=== PATIENT | male | born 1955 | race American Indian/Alaskan Native ===

== ENCOUNTER 2019-03-10 06:05 | Emergency (ER) | payer MEDICAID ==
[2019-03-10] MEDS ORDERED: ASPIRIN PO ONE (06:27)
[2019-03-10 06:36] LABS: Basophils # (Auto) 0.1 K/mm3 (0.0-0.1); Basophils % (Auto) 0.7 % (0.0-1.8); Eosinophils # (Auto) 0.1 K/mm3 (0.0-0.4); Eosinophils % (Auto) 1.9 % (0.0-4.3); Hemoglobin 14.1 gm/dl (11.8-15.2); Lymphocytes # (Auto) 1.6 K/mm3 (1.2-5.4); Lymphocytes % (Auto) 21.7 % (13.4-35.0); Mean Corpuscular HGB Conc 34 % (32-34); Mean Corpuscular Volume 87 fl (84-94); Monocytes # (Auto) 0.7 K/mm3 (0.0-0.8); Monocytes % (Auto) 9.4 % (0.0-7.3); Platelet Count 218 K/mm3 (140-440); Red Blood Count 4.84 M/mm3 (3.65-5.03); Red Cell Distribution Width 14.1 % (13.2-15.2)
[2019-03-10 06:57] LABS: BUN/Creatinine Ratio 16; Blood Urea Nitrogen 16 mg/dL (9-20); Calcium 9.4 mg/dL (8.4-10.2); Hemolysis Index 9
[2019-03-10] MEDS ORDERED: ANTIVERT PO ONE (07:17)
--- NOTE | 2019-03-10 07:20 | Emergency Department Report ---
HPI - General Chief Complaint: Dizziness Time Seen by Provider: 03/10/19 07:06 - HPI HPI: 63-year-old -[place] male presents to the emergency Department from home by EMS with complaint of some dizziness causing him to have a fall, followed by some chest pain. He says that the chest pain is resolved but he still has this dizziness that worsens when he turns his head or makes any sharp movements. Patient has a past medical history of previous MD in March of last year, [id number] diabetes and hypertension. He did not take anything for her symptoms prior to presentation, nor receive anything in route. He has a primary care physician through [place] but denies having a qa lead. Denies any tobacco or illicit drug use. No recent travel or sick contacts at home. ED Past Medical Hx - Past Medical History Previous Medical History?: Yes Hx Hypertension: Yes Hx Heart Attack/AMI: Yes (March 2018) Hx Diabetes: Yes - Social History Smoking Status: Never Smoker Substance Use Type: None - Medications Home Medications: Home Medications Medication Instructions Recorded Confirmed Last Taken Type Meclizine [Antivert] 25 mg PO TID PRN #20 tablet 03/10/19 Unknown Rx ED Review of Systems ROS: Stated complaint: DIZZINESS Other details as noted in HPI Comment: All other systems reviewed and negative Constitutional: denies: chills, fever Eyes: denies: eye pain, vision change ENT: denies: ear pain, throat pain Respiratory: shortness of breath. denies: cough Cardiovascular: chest pain. denies: palpitations Gastrointestinal: denies: abdominal pain, vomiting Genitourinary: denies: dysuria, discharge Musculoskeletal: denies: back pain, arthralgia Neurological: headache, vertigo Physical Exam - Physical Exam Vital Signs: Vital Signs 03/10/19 03/10/19 03/10/19 04:16 06:12 06:16 Temperature 97.9 F Pulse Rate 83 83 79 Respiratory 10 L 16 20 Rate Blood Pressure 126/68 126/68 157/71 O2 Sat by Pulse 97 Oximetry 03/10/19 03/10/19 03/10/19 06:31 07:00 07:13 Temperature Pulse Rate 77 72 Respiratory 12 14 18 Rate Blood Pressure 125/70 O2 Sat by Pulse Oximetry Physical Exam: GENERAL: The patient is well-developed well-nourished. HENT: Normocephalic. Atraumatic. Patient has moist mucous membranes. EYES: Extraocular motions are intact. Pupils equal reactive to light bilaterally. Patient has horizontal nystagmus that worsens his symptoms. NECK: Supple. Trachea is midline. CHEST/LUNGS: Clear to auscultation. There is no respiratory distress noted. HEART/CARDIOVASCULAR: Regular. There is no tachycardia. There is no murmur. ABDOMEN: Abdomen is soft, nontender. Patient has normal bowel sounds. Morbidly obese habitus. SKIN: Skin is warm and dry. NEURO: The patient is awake, alert, and oriented. The patient is cooperative. The patient has no focal neurologic deficits. The patient has normal speech. Cranial nerves II through XII grossly intact. No pronator drift. No dysmetria. MUSCULOSKELETAL: There is no tenderness or deformity. There is no limitation range of motion. There is no evidence of acute injury. Muscle strength 5 out of 5 upper and lower extremities bilaterally. ED Course Vital Signs 03/10/19 03/10/19 03/10/19 04:16 06:12 06:16 Temperature 97.9 F Pulse Rate 83 83 79 Respiratory 10 L 16 20 Rate Blood Pressure 126/68 126/68 157/71 O2 Sat by Pulse 97 Oximetry 03/10/19 03/10/19 03/10/19 06:31 07:00 07:13 Temperature Pulse Rate 77 72 Respiratory 12 14 18 Rate Blood Pressure 125/70 O2 Sat by Pulse Oximetry ED Medical Decision Making - Lab Data Result diagrams: 03/10/19 06:25 03/10/19 06:25 - EKG Data -: EKG Interpreted by Me EKG shows normal: sinus rhythm, axis, intervals (prolonged NE interval), QRS complexes (low-voltage, Q waves to the anterior leads), ST-T waves Rate: normal - EKG Data When compared to previous EKG there are: previous EKG unavailable Interpretation: other (sinus rhythm, prolonged NE interval, low-voltage QRS, Q waves to the anterior leads) - Radiology Data Radiology results: report reviewed, image reviewed interpreted by me: Chest x-ray does not show any acute process. There are no pleural effusions, obvious pneumonia and there is no pneumothorax. PROCEDURE: CT HEAD/BRAIN WO CON TECHNIQUE: A noncontrast CT of the head was performed. HISTORY: dizziness COMPARISON: None FINDINGS: There is no acute intracranial hemorrhage. There is no brain edema, mass effect or midline shift. Ventricular size is appropriate for brain volume. There is no abnormal extra-axial fluid collections. There is no skull fracture seen. The visualized paranasal sinuses are clear. IMPRESSION: There is no acute intracranial abnormality seen. This document is electronically signed by Argelia Wang MD., March 10 2019 11:21:10 AM ET Transcribed By: PATRICIO Dictated By: ARGELIA WANG MD Electronically Authenticated By: ARGELIA WANG MD Signed Date/Time: 03/10/19 1123 - Medical Decision Making This patient presents to the emergency department with a room spinning dizziness sensation that started earlier today that caused him to have a fall. Then he had some transient short chest pains that have since resolved. On examination the patient does not have any focal, motor or sensory deficits and his cranial nerves are intact. He does have some results horizontal nystagmus that worsens the room spinning sensation. Patient was given a dose of Antivert. CT scan of the head was done that does not show any bleed, shift, mass, ischemia, or any other acute process. Unable to obtain angiography of the head and neck due to the patient's body habitus but at the time of that examination the patient is currently asymptomatic. Patient's labs were unremarkable including CBC, metabolic panel, TSH, troponin and d-dimer. He was seen ambulatory in the emergency department and both appears and feels stable. There was no return of any of the vertigo like symptoms. His vital signs are stable throughout his ED course. The patient will be discharged home to follow-up with his primary care physician. He was given a referral for cardiology. He was given a prescription for Antivert. He will return to the ER with any return of his chest pain, worsening symptoms, if any acute distress. - Differential Diagnosis benign positional vertigo, TIA, PE, electrolyte abnor Critical Care Time: No Critical care attestation.: If time is entered above; I have spent that time in minutes in the direct care of this critically ill patient, excluding procedure time. ED Disposition Clinical Impression: Vertigo, Dizziness Disposition: DC-01 TO HOME OR SELFCARE Is pt being admited?: No Condition: Stable Instructions: Vertigo (ED), Dizziness (ED) Additional Instructions: Please follow-up with your primary care physician in the next few days. I'm giving him a referral for a local qa lead, Dr. Arndt, follow-up regarding her previous chest pain. Return to the emergency Department with any return of chest pain, worsening of your symptoms or any acute distress. Prescriptions: Meclizine [Antivert] 25 mg PO TID PRN #20 tablet PRN Reason: Vertigo Referrals: NILE ARNDT MD [Staff Physician] - 3-5 Days Time of Disposition: 13:14
--- NOTE | 2019-03-10 11:23 | Cat Scan Report ---
PROCEDURE: CT HEAD/BRAIN WO CON TECHNIQUE: A noncontrast CT of the head was performed. HISTORY: dizziness COMPARISON: None FINDINGS: There is no acute intracranial hemorrhage. There is no brain edema, mass effect or midline shift. Ventricular size is appropriate for brain volume. There is no abnormal extra-axial fluid collections. There is no skull fracture seen. The visualized paranasal sinuses are clear. IMPRESSION: There is no acute intracranial abnormality seen. This document is electronically signed by Argelia Walton MD., March 10 2019 11:21:10 AM ET
[2019-03-10 13:22] VITALS: BP 155/99
--- NOTE | 2019-03-10 20:07 | XRay Report ---
PROCEDURE: XR CHEST 1V AP TECHNIQUE: Chest radiograph single view. HISTORY: Chest Pain COMPARISONS: None . FINDINGS: Heart: Normal. Mediastinum/Vessels: Normal. Lungs/Pleural space: Normal. Bony thorax: No acute osseous abnormality. Life support devices: None. IMPRESSION: No acute cardiopulmonary abnormality. This document is electronically signed by Aram Jalloh MD., March 10 2019 08:05:52 PM ET
== END 2019-03-10 13:48 | disposition home or self-care (01) ==
LOC: ED 06:05
DX: R42 Dizziness and giddiness (principal); R07.9 Chest pain, unspecified; I10 Essential (primary) hypertension; I25.2 Old myocardial infarction; E11.9 Type 2 diabetes mellitus without complications; Z79.899 Other long term (current) drug therapy; W18.30XA Fall on same level, unspecified, initial encounter; Y93.89 Activity, other specified; Y92.89 Other specified places as the place of occurrence of the external cause; Y99.8 Other external cause status
CPT/HCPCS: 36415; 70450; 71045; 80048; 84443; 84484; 85025; 85379; 93005; 93010

== ENCOUNTER 2019-03-23 18:59 | Emergency (ER) | payer MEDICAID ==
[2019-03-23 19:37] VITALS: BP 153/82
[2019-03-23] MEDS ORDERED: BICILLIN L-A IM ONE (20:31)
[2019-03-23] MEDS ORDERED: DECADRON IM ONE (20:31)
--- NOTE | 2019-03-23 20:32 | Emergency Department Report ---
Minor Respiratory - HPI Chief Complaint: Sore Throat Stated Complaint: SORE THROAT Time Seen by Provider: 03/23/19 20:31 Duration: 3 Days Pain Location: Throat Severity: mild Minor Respiratory: Yes Sore Throat, Yes Able to Tolerate Fluids, No Rhinorrhea, No Ear Pain, No Cough, No Sick Contacts, No Hemoptysis, No Chest Pain, No Shortness of Breath, No Fever Other History: 63 yo morbidly obese male with 3 day history of sorethroat. controlling secretions. no abscess. taking po ED Review of Systems ROS: Stated complaint: SORE THROAT Other details as noted in HPI Comment: All other systems reviewed and negative ED Past Medical Hx - Past Medical History Previous Medical History?: Yes Hx Hypertension: Yes Hx Heart Attack/AMI: Yes (March 2018) Hx Diabetes: Yes - Social History Smoking Status: Never Smoker Substance Use Type: None - Medications Home Medications: Home Medications Medication Instructions Recorded Confirmed Last Taken Type Meclizine [Antivert] 25 mg PO TID PRN #20 tablet 03/10/19 Unknown Rx Amoxicillin [Trimox CAP] 500 mg PO TID #30 capsule 03/23/19 Unknown Rx Minor Respiratory Exam - Exam General: Vital signs noted. No distress. Alert and acting appropriately. HEENT: Yes Pharyngeal Erythema, Yes Moist Mucous Membranes, No Pharyngeal Exudates, No Rhinorrhea Ear: Neither TM Bulge, Neither TM Erythema Neck: Yes Supple, No Adenopathy Lungs: Yes Good Air Exchange, No Wheezes Heart: Yes Regular, No Murmur Abdomen: No Tenderness Skin: No Rash Neurologic: Alert and oriented, no deficits. Musculoskeletal: Unremarkable. ED Course Vital Signs 03/23/19 19:28 Temperature 98.9 F Pulse Rate 91 H Respiratory 18 Rate Blood Pressure 153/82 O2 Sat by Pulse 93 Oximetry ED Medical Decision Making - Medical Decision Making exam - uvula midline and red malodorous medicated with steroid and bicillin in ER dc home with dc plan of care and follow up Vital Signs 03/23/19 19:28 Temperature 98.9 F Pulse Rate 91 H Respiratory 18 Rate Blood Pressure 153/82 O2 Sat by Pulse 93 Oximetry Critical care attestation.: If time is entered above; I have spent that time in minutes in the direct care of this critically ill patient, excluding procedure time. ED Disposition Clinical Impression: Pharyngitis, Morbid obesity Disposition: DC-01 TO HOME OR SELFCARE Is pt being admited?: No Does the pt Need Aspirin: No Condition: Stable Instructions: Pharyngitis (ED) Prescriptions: Amoxicillin [Trimox CAP] 500 mg PO TID #30 capsule Referrals: FAIZAN PADGETT MD [Primary Care Provider] - 3-5 Days Time of Disposition: 21:45
== END 2019-03-23 22:15 | disposition home or self-care (01) ==
LOC: ED 18:59
DX: J02.9 Acute pharyngitis, unspecified (principal); E66.09 Other obesity due to excess calories; I10 Essential (primary) hypertension; I25.2 Old myocardial infarction; E11.9 Type 2 diabetes mellitus without complications; Z79.899 Other long term (current) drug therapy; Z88.8 Allergy status to other drugs, medicaments and biological substances
CPT/HCPCS: 96372; 99282; J0561; J1100

== ENCOUNTER 2019-03-25 15:13 | Emergency (ER) | payer MEDICAID ==
[2019-03-25] MEDS ORDERED: CLEOCIN 900 MG/50 mL 900 MG/50 ML BAG IV ONE (19:33)
[2019-03-25] MEDS ORDERED: DECADRON IV ONE (19:33)
[2019-03-25] MEDS ORDERED: TORADOL IV ONE (19:33)
[2019-03-25 20:40] LABS: Basophils # (Auto) 0.1 K/mm3 (0.0-0.1); Basophils % (Auto) 1.1 % (0.0-1.8); Eosinophils # (Auto) 0.1 K/mm3 (0.0-0.4); Hematocrit 42.3 % (35.5-45.6); Hemoglobin 14.1 gm/dl (11.8-15.2); Lymphocytes # (Auto) 3.5 K/mm3 (1.2-5.4); Lymphocytes % (Auto) 29.4 % (13.4-35.0); Mean Corpuscular HGB Conc 33 % (32-34); Mean Corpuscular Volume 87 fl (84-94); Monocytes # (Auto) 1.4 K/mm3 (0.0-0.8); Platelet Count 240 K/mm3 (140-440); Red Blood Count 4.85 M/mm3 (3.65-5.03); Red Cell Distribution Width 14.3 % (13.2-15.2)
[2019-03-25 20:53] LABS: BUN/Creatinine Ratio 16; Blood Urea Nitrogen 18 mg/dL (9-20); Calcium 9.1 mg/dL (8.4-10.2); Hemolysis Index 3
--- NOTE | 2019-03-25 21:19 | Emergency Department Report ---
ED ENT HPI - General Chief complaint: Sore Throat Stated complaint: THROAT PAIN Time Seen by Provider: 03/25/19 19:22 Source: patient Mode of arrival: Ambulatory Limitations: No Limitations - History of Present Illness Initial comments: pt is a 63 y/o aam who presents for sore throat x 1 week seen 2 days ago tx'd with pcn not improving not taking abx at home states pain is worsen , dysphagia and fever there is no sob no wheezing no stridor. complaint: sore throat Onset/Timin -: week(s) Location: throat Severity: moderate Severity scale (0 -10): 6 Quality: burning, sharp Improves with: none Worsens with: swallowing Associated Symptoms: pain with swallowing, sore throat - Related Data Previous Rx's Medication Instructions Recorded Last Taken Type Meclizine [Antivert] 25 mg PO TID PRN #20 tablet 03/10/19 Unknown Rx Amoxicillin [Trimox CAP] 500 mg PO TID #30 capsule 03/23/19 Unknown Rx Acetaminophen [Acetaminophen TAB] 650 mg PO Q6HR PRN #30 tablet 03/25/19 Unknown Rx Benzocaine/Mentho [Cepacol X 1 each MM Q2H PRN #3 packet 03/25/19 Unknown Rx Strength] Clindamycin [Clindamycin CAP] 300 mg PO Q6H 10 Days #40 capsule 03/25/19 Unknown Rx dexAMETHasone [Decadron] 4 mg PO BID 3 Days #6 tablet 03/25/19 Unknown Rx Allergies Allergy/AdvReac Type Severity Reaction Status Date / Time lisinopril Allergy Swelling Verified 03/10/19 07:09 ED Dental HPI - General Chief complaint: Sore Throat Stated complaint: THROAT PAIN Time Seen by Provider: 03/25/19 19:22 Source: patient Mode of arrival: Ambulatory Limitations: No Limitations - Related Data Previous Rx's Medication Instructions Recorded Last Taken Type Meclizine [Antivert] 25 mg PO TID PRN #20 tablet 03/10/19 Unknown Rx Amoxicillin [Trimox CAP] 500 mg PO TID #30 capsule 03/23/19 Unknown Rx Acetaminophen [Acetaminophen TAB] 650 mg PO Q6HR PRN #30 tablet 03/25/19 Unknown Rx Benzocaine/Mentho [Cepacol X 1 each MM Q2H PRN #3 packet 03/25/19 Unknown Rx Strength] Clindamycin [Clindamycin CAP] 300 mg PO Q6H 10 Days #40 capsule 03/25/19 Unknown Rx dexAMETHasone [Decadron] 4 mg PO BID 3 Days #6 tablet 03/25/19 Unknown Rx Allergies Allergy/AdvReac Type Severity Reaction Status Date / Time lisinopril Allergy Swelling Verified 03/10/19 07:09 ED Review of Systems ROS: Stated complaint: THROAT PAIN Other details as noted in HPI Constitutional: chills, fever Eyes: denies: eye pain, eye discharge, vision change ENT: throat pain, congestion Respiratory: denies: cough, shortness of breath, wheezing Cardiovascular: denies: chest pain, palpitations Endocrine: no symptoms reported Gastrointestinal: denies: abdominal pain, nausea, vomiting, diarrhea Genitourinary: denies: urgency, dysuria Musculoskeletal: denies: back pain, joint swelling, arthralgia Skin: denies: rash, lesions Neurological: as per HPI Psychiatric: denies: anxiety, depression Hematological/Lymphatic: denies: easy bleeding, easy bruising ED Past Medical Hx - Past Medical History Previous Medical History?: Yes Hx Hypertension: Yes Hx Heart Attack/AMI: Yes (March 2018) Hx Diabetes: Yes - Surgical History Past Surgical History?: No - Social History Smoking Status: Former Smoker Substance Use Type: None - Medications Home Medications: Home Medications Medication Instructions Recorded Confirmed Last Taken Type Meclizine [Antivert] 25 mg PO TID PRN #20 tablet 03/10/19 Unknown Rx Amoxicillin [Trimox CAP] 500 mg PO TID #30 capsule 03/23/19 Unknown Rx Acetaminophen [Acetaminophen TAB] 650 mg PO Q6HR PRN #30 tablet 03/25/19 Unknown Rx Benzocaine/Mentho [Cepacol X 1 each MM Q2H PRN #3 packet 03/25/19 Unknown Rx Strength] Clindamycin [Clindamycin CAP] 300 mg PO Q6H 10 Days #40 capsule 03/25/19 Unknown Rx dexAMETHasone [Decadron] 4 mg PO BID 3 Days #6 tablet 03/25/19 Unknown Rx ED Physical Exam - General Limitations: No Limitations General appearance: alert, in no apparent distress - Head Head exam: Present: atraumatic, normocephalic - Eye Eye exam: Present: normal appearance, PERRL, EOMI Pupils: Present: normal accommodation - ENT ENT exam: Present: mucous membranes moist, TM's normal bilaterally, normal external ear exam - Expanded ENT Exam Expanded Ear exam: Present: normal external inspection Throat exam: Positive: tonsillar erythema, tonsillomegaly, tonsillar exudate, other (uvula midline mils swelling no stridor no peritonsilar abscess ). Negative: R peritonsillar mass, L peritonsillar mass - Neck Neck exam: Present: normal inspection, full ROM, lymphadenopathy. Absent: tenderness, meningismus (mainly), thyromegaly - Expanded Neck Exam Expanded Neck exam: Absent: midline deformity, anterior neck swelling, thyroid mass, carotid bruit, tracheal deviation - Respiratory Respiratory exam: Present: normal lung sounds bilaterally (carrying). Absent: respiratory distress, wheezes, stridor, chest wall tenderness - Cardiovascular Cardiovascular Exam: Present: regular rate, normal rhythm, normal heart sounds. Absent: systolic murmur, diastolic murmur, rubs, gallop - GI/Abdominal GI/Abdominal exam: Present: soft, normal bowel sounds. Absent: distended, tenderness, guarding, rebound, rigid, bruit, hernia - Rectal Rectal exam: Present: deferred - Extremities Exam Extremities exam: Present: normal inspection - Back Exam Back exam: Present: normal inspection, full ROM. Absent: tenderness, CVA tenderness (R), CVA tenderness (L) - Neurological Exam Neurological exam: Present: alert, oriented X3, CN II-XII intact (name), normal gait, reflexes normal. Absent: motor sensory deficit - Psychiatric Psychiatric exam: Present: normal affect, normal mood - Skin Skin exam: Present: warm, dry, intact, normal color. Absent: rash ED Course Vital Signs 03/25/19 15:20 Temperature 98.7 F Pulse Rate 90 Respiratory 18 Rate Blood Pressure 144/90 O2 Sat by Pulse 97 Oximetry ED Medical Decision Making - Lab Data Result diagrams: 03/25/19 20:18 03/25/19 20:18 - Medical Decision Making symptoms relieved pain is 1/10 now down from 8/10 airway is patent, uvual midline no stridor no fever plan change abx to clinidamycin, tylenol cepachol, and decadron, follow up with pcp in 2-3 days given referral to same and ENT pt will follow up in 2-3 days return to ed if symptoms worsen or unable to tolerate po intake. pt verbalized agreement and understanding of same. pt states he feels much better refuses ct soft tissue neck this is reasonable noting ct scan form 03/10/2019 pt will be dc'd to ho is is me in stable condition at this time. Critical care attestation.: If time is entered above; I have spent that time in minutes in the direct care of this critically ill patient, excluding procedure time. ED Disposition Clinical Impression: is notable for Pharyngitis Qualifiers: Pharyngitis/tonsillitis etiology: unspecified etiology Qualified Code(s): J02.9 - Acute pharyngitis, unspecified Disposition: DC-01 TO HOME OR SELFCARE Is pt being admited?: No Does the pt Need Aspirin: No Condition: Stable Instructions: Pharyngitis (ED) Prescriptions: Acetaminophen [Acetaminophen TAB] 650 mg PO Q6HR PRN #30 tablet PRN Reason: Pain Benzocaine/Mentho [Cepacol X Strength] 1 each MM Q2H PRN #3 packet PRN Reason: Sore Throat Clindamycin [Clindamycin CAP] 300 mg PO Q6H 10 Days #40 capsule dexAMETHasone [Decadron] 4 mg PO BID 3 Days #6 tablet Referrals: FAIZAN PADGETT MD [Primary Care Provider] - 3-5 Days KOREY FONTAINE MD [Staff Physician] - 3-5 Days Forms: Work/School Release Form(ED)
[2019-03-25 21:31] VITALS: BP 122/69
== END 2019-03-25 21:30 | disposition home or self-care (01) ==
LOC: ED 15:13
DX: J02.9 Acute pharyngitis, unspecified (principal); I10 Essential (primary) hypertension; E11.9 Type 2 diabetes mellitus without complications; I25.2 Old myocardial infarction; Z87.891 Personal history of nicotine dependence; Z88.8 Allergy status to other drugs, medicaments and biological substances; Z79.899 Other long term (current) drug therapy
CPT/HCPCS: 80048; 85025; 96365; 96375; 99283; J1100; J1885